=== PATIENT | female | born 1980 | race Caucasian/White ===

== ENCOUNTER 2022-06-11 13:41 | Outpatient (CLI) | payer OTHER, SELFPAY ==
--- NOTE | 2022-06-11 13:40 | CRLHL7_ITS ---
For Patients: As a result of the Cures Act, medical imaging exams and procedure reports are released immediately into your electronic medical record. You may view this report before your referring provider. If you have questions, please contact your health care provider. BILATERAL SCREENING MAMMOGRAM WITH COMPUTER-AIDED DETECTION TECHNIQUE: CC and MLO views were obtained. These mammographic images have been obtained using full-field digital technique. These mammographic images were interpreted with the benefit of computer-aided detection. COMPARISON FILM: 04/15/21, 03/24/20. FINDINGS: The breasts are almost entirely fatty IMPRESSION: There is no radiographic evidence for malignancy. ASSESSMENT: BI-RADS Category 1: Negative RECOMMENDATION: Routine screening mammogram in 1 year. A lay language report of this examination will be provided to the patient. Amadeo Baltazar M.D. Diagnostic Radiologist [email or web address] GIL/daren / be/Dictated by: Amadeo Baltzaar MD @ 06/14/2022 8:36:00 AM (Electronically Signed)
== END 2022-06-11 13:42 | disposition home or self-care (01) ==
LOC: MAMMO 13:42
PROVIDERS: PCP Physician Assistant Medical; Visit Provider Physician Assistant Medical
DX: Z12.31 Encounter for screening mammogram for malignant neoplasm of breast (principal)
CPT/HCPCS: 77063; 77067

== ENCOUNTER 2023-08-05 08:45 | Outpatient (CLI) | payer OTHER, SELFPAY | END 2023-08-05 08:46 | disposition home or self-care (01) | LOC: NFLDREF 08-08 06:51 | PROVIDERS: PCP Physician Assistant Medical; Referring Provider Physician Assistant Medical; Visit Provider Physician Assistant Medical | DX: I10 Essential (primary) hypertension (principal); M54.9 Dorsalgia, unspecified; Z11.59 Encounter for screening for other viral diseases; Z13.220 Encounter for screening for lipoid disorders; Z13.21 Encounter for screening for nutritional disorder; Z13.29 Encounter for screening for other suspected endocrine disorder | CPT/HCPCS: 80053; 80061; 82607; 84443; 86703; 86803; 87086 ==

== ENCOUNTER 2023-09-09 07:12 | Outpatient (CLI) | payer OTHER, SELFPAY ==
--- NOTE | 2023-09-09 07:15 | CRLHL7_ITS ---
For Patients: As a result of the Century Cures Act, medical imaging exams and procedure reports are released immediately into your electronic medical record. You may view this report before your referring provider. If you have questions, please contact your health care provider. INDICATION: irregular menstruation COMPARISON: none TECHNIQUE: 2D julien scale and color Doppler images were acquired of the pelvis using a transabdominal and transvaginal approach. FINDINGS: The uterus measures 9.8 x 5.0 x 6.0 cm. Posterior uterine fibroid is present measuring 2.4 x 1.4 x 1.9 cm. The endometrium is difficult to visualize due to its indistinct margins but appears to measure approximately 6 millimeters. Cervical nabothian cysts are present. The ovaries are not visualized. There are no suspicious fluid collections within the cul-de-sac. IMPRESSION: Indistinct endometrium measuring approximally 6 millimeters. No endometrial fluid. Intramural uterine fibroid measuring 2.4 cm. Dictated by Amadeo Baltazar MD @ 09/12/2023 5:55:17 AM (Electronically Signed)
== END 2023-09-09 07:13 | disposition home or self-care (01) ==
LOC: US 07:12
PROVIDERS: PCP Physician Assistant Medical; Visit Provider Physician Assistant Medical
DX: N92.6 Irregular menstruation, unspecified (principal); D25.1 Intramural leiomyoma of uterus; N80.9 Endometriosis, unspecified
CPT/HCPCS: 76830; 76856

== ENCOUNTER 2023-12-12 14:02 | Outpatient (CLI) | payer OTHER, SELFPAY ==
--- NOTE | 2023-12-12 14:00 | CRLHL7_ITS ---
For Patients: As a result of the Cures Act, medical imaging exams and procedure reports are released immediately into your electronic medical record. You may view this report before your referring provider. If you have questions, please contact your health care provider. BILATERAL SCREENING MAMMOGRAM WITH COMPUTER-AIDED DETECTION AND TOMOSYNTHESIS TECHNIQUE: CC and MLO views were obtained. These mammographic images have been obtained using full-field digital technique. These mammographic images were interpreted with the benefit of computer-aided detection. Breast Tomosynthesis was used in this interpretation. COMPARISON FILM: 06/11/22, 04/15/21, 03/24/20. FINDINGS: There are scattered areas of fibroglandular density IMPRESSION: There is no radiographic evidence for malignancy. ASSESSMENT: BI-RADS Category 1: Negative RECOMMENDATION: Routine screening mammogram in 1 year. A lay language report of this examination will be provided to the patient. Amadeo Baltazar M.D. Diagnostic Radiologist [email or web address] GIL/kishan Transcribed: 2:55 p.mYari holley/Dictated by: Amadeo Baltazar MD @ 12/13/2023 9:50:00 AM (Electronically Signed)
== END 2023-12-12 14:03 | disposition home or self-care (01) ==
PROVIDERS: PCP Physician Assistant Medical; Visit Provider Physician Assistant Medical
DX: Z12.31 Encounter for screening mammogram for malignant neoplasm of breast (principal)
CPT/HCPCS: 77063; 77067

== ENCOUNTER 2024-01-24 08:44 | Inpatient (IN) | payer OTHER, SELFPAY ==
[2024-01-24] VITALS (19 sets, daily range): BP systolic 111–139; BP diastolic 68–97; PULSE 57–78; RESP 16–20; TEMP 35.7–37; O2SAT 94–96; BMI 44.4
--- NOTE | 2024-01-24 09:15 | W.PM.GYNPROC ---
Procedure Note Date of procedure: 01/24/24 Will [facility] bill your pro fee for this procedure?: Yes Pre-op diagnosis: 1. Pelvic pain. 2. Endometriosis. 3. History of section x2. Post-op diagnosis: Same + left abdominal calcified mass in the subcutaneous adipose. Procedure: 1. Total abdominal hysterectomy. 2. Right salpingo oophorectomy. 3. Left oophorectomy. 4. Excision of calcified abdominal mass in the subcutaneous adipose to the left of midline. Anesthesia: GETA Complications: None. Surgeon: Lucrecia Valverde MD Investigator Claims: Cheryl Cortez Estimated blood loss (mL): 200 Urine Output (mL): 400 Pathology: specimen obtained, sent to pathology (Uterus with attached cervix, detached right ovary and tube, left ovary, calcified adipose mass) Condition: stable Disposition: floor Procedure Description: After obtaining informed consent, the patient was taken to the operating room where general anesthesia was obtained without difficulty. She was prepared and draped in the normal sterile fashion in the low dorsal lithotomy position with legs supported in Yellofin stirrups. A Dejesus catheter was inserted sterilely into the bladder. A Pfannenstiel skin incision was made with a scalpel along the line of the patient's previous Pfannenstiel scar. This incision was carried down to the underlying layer of fascia with the Bovie. During the dissection in the adipose tissue, a firm calcified mass, approximately golf ball-sized, was encountered to the left of midline just above and adherent to the fascia. This was excised using a combination of electrocautery and sharp dissection, though a small amount of the mass was left adherent to the fascia because of concerns about buttonholing of the fascia itself. Hemostasis was obtained with electrocautery. The fascia was incised in the midline and the incision extended laterally. The superior and inferior aspects of the fascial incision were grasped with Guy clamps and the underlying rectus muscles dissected off sharply. The rectus muscles were in the midline. The underlying peritoneum was identified and entered bluntly. The peritoneal incision was extended superiorly and inferiorly with good visualization of the bladder. The patient was placed in some mild Trendelenburg positioning. The bowels were packed cephalad using a large moistened laparotomy sponge. The Lucas O retractor was placed in the incision. This provided adequate visualization of the pelvis. The pelvis was inspected with the findings noted above. Luis clamps were placed at the cornua bilaterally for traction. Both ureters were identified along their courses within the pelvic sidewall, the right by direct visualization and the left by palpation. The right right round ligament was doubly clamped with Guy clamps, transected, and suture ligated with 0 Vicryl. The anterior leaf of the broad ligament was opened to the midline from the right side. The right infundibulopelvic ligament was isolated, and two Gardenia clamps were placed across it just distal to right ovary. The right infundibulopelvic ligament was transected and doubly suture ligated with 0 Vicryl. Hemostasis was observed. The uterine vessels were skeletonized on the right side. The right tube and ovary were removed from the uterus at the cornua for better visualization during the hysterectomy and the pedicle suture ligated with 0 Vicryl. The uterine vessels were clamped across with a Gardenia and a straight clamp, transected, and suture ligated. Excellent hemostasis was obtained. Attention was then turned to the left side. The left round ligament was clamped with 2 Guy clamps, transected, and suture ligated with 0 Vicryl. The anterior leaf of the broad ligament was opened from the left side to the midline. The bladder was pushed caudally with a sponge stick. The left infundibulopelvic ligament could not be isolated at this time because the left ovary and left fallopian tube were densely adherent to the left pelvic sidewall. The left ovarian ligament and distal fallopian tube were isolated, transected, and doubly suture ligated with 0 Vicryl. Hemostasis was visualized. The left uterine vessels were skeletonized and then clamped across with Gardenia clamps, transected, and suture ligated. Excellent hemostasis was obtained. The remaining cardinal and uterosacral ligament attachments on both sides were clamped with straight Gardenia clamps adjacent to the lower uterine segment and cervix, transected and suture ligated with 0 Vicryl. On both sides, there were some accessory vessels that caused bleeding, and the bleeding vessels were identified, clamped with a right angle clamp, and suture ligated with 2-0 Vicryl or 2-0 chromic. Two Gardenia clamps were placed across the vaginal cuff angles. The uterus with attached cervix was then transected and passed off the field. The vaginal cuff angles were fixed with Gardenia stitches of 0 Vicryl. The intervening vaginal cuff was closed with [id number] sutures of 0 Vicryl. Attention was then turned to the left ovary. The tube appeared to be wrapped around the ovary and both were densely adherent to the left pelvic sidewall. Sharp adhesiolysis was done to free the ovary from the fallopian tube until the left infundibulopelvic ligament could be isolated. One small area had to be suture ligated with 3-0 chromic. The left ureter was palpated inferior to the area of dissection. The left infundibulopelvic ligament was clamped across with a curved Mark clamp just beneath the ovary, the ovary transected from the infundibulopelvic ligament and the pedicle suture ligated doubly with 0 Vicryl. Excellent hemostasis was obtained. The decision was made at this point to leave at the tube in place so as not to risk further bleeding. The abdomen and pelvis were then copiously irrigated. Hemostasis was visualized. Siobhan was placed over the raw tissue edges. Preparations were then made for cystoscopy. Fluorescein was administered intravenously. The abdominal incision was covered with a sterile towel. The patient's legs were placed in the lithotomy position. The Dejesus catheter was sterilely removed from the bladder. Cystoscopy was then performed using a 30 degree she cystoscope. Sterile normal saline to gravity drainage was used as distending media. The bladder was noted to be free of filling defects or suture material. Both ureters were identified and jets of fluorescein-tinged urine was noted from both ureteral orifices. The cystoscope was removed. The Dejesus catheter was replaced sterilely into the bladder. I then changed my gloves and my attention was once again turned to the abdomen. The abdomen was again inspected for hemostasis, and no active bleeding was noted. All laparotomy sponges and instruments were then removed. The subfascial tissues were carefully inspected and hemostasis assured. The fascia was reapproximated in a running fashion with a looped 0 Maxon suture. The subcutaneous tissues were copiously irrigated and hemostasis assured. The subcutaneous adipose layer was reapproximated in two running layers with 3-0 plain gut. The skin was closed in a subcuticular fashion with 4-0 Vicryl. A silver Mepilex dressing was applied. The patient tolerated the procedure well. Sponge, lap, needle, instrument counts were reported as correct x2. The patient was taken to recovery room awake and in stable condition. She received 3g of IV Ancef preoperatively and another 2 g of IV Ancef one I was notified that the total operating time had surpassed 3 hours. She received 30 mg of IV Toradol at the conclusion of the procedure. The uterus was weighed at the conclusion of the procedure, weight was 115. Postoperative debriefing was performed which confirmed the pathology specimens and the procedures performed. PATHOLOGY SPECIMEN(S): 1. Uterus, with detached right tube and ovary. 2. Left ovary. 3. Calcified abdominal adipose mass.
[2024-01-24] MEDS: SODIUM CHLORIDE 0.9 % (FLUSH) 10 ML SYRINGE IVF ×2 (09:40→20:56)
[2024-01-24 09:41] LABS: Hemoglobin* 13.9 gm/dL (12.0-16.0)
[2024-01-24 09:44] LABS: Ur HCG Qualitative* Negative (Negative)
--- NOTE | 2024-01-24 10:26 | W.ANESCHARGE ---
Anesthesia Charges Start Date/Time Anesthesia Start Date: 01/24/24 Anesthesia Start Time: 11:08 Stop Date/Time Anesthesia Stop Date: 01/24/24 Anesthesia Stop Time: 15:25
--- NOTE | 2024-01-24 10:36 | W.PM.H&PU_ITS ---
History & Physical Update History & Physical Update H&P Reviewed and patient assessed: No changes noted H&P Updates: Patient and I discussed the planned surgery and she indicated that she desired that both fallopian tubes and ovaries be removed along with the uterus. This is reasonable, given her endometriosis and pelvic pain history. We discussed estrogen-replacement therapy to start at hospital discharge for control of menopausal symptoms, and the patient expressed a preference for an estrogen- containing patch.
[2024-01-24] MEDS: LACTATED RINGERS 500 ML 500 ML 125 ML IV ×3 (11:02→14:35)
[2024-01-24] MEDS: CEFAZOLIN 1 GM inj 3 GM IVP (11:22)
--- NOTE | 2024-01-24 11:24 | P.NB_ITS ---
Nerve Block Nerve Block Time Seen by Provider: 11:17 Date Seen: 01/24/24 Type of block requested by surgeon for post-operative analgesia: TAP Side: bilateral Time out performed: Yes Verification of patient name: Yes Verification of date of : Yes Site marking: site marked Name of person performing procedure: Sammy Continuous monitoring Was continuous monitoring of O2 sat, B/P, telemetry monitor, recorded every 15 minutes?: Yes Procedure Checklist: sterile prep, needles and gloves Ultrasound guided. Images saved: Yes Medications given in 5ml increments after negative aspiration: Marcaine %: 0.25 mL: 30 Needle gauge: 20 and Exparel mL: 10 Patient tolerated procedure well: Yes Additional comments: Needle noted between internal oblique and transversus abdominus. Local spread visualized Block Charges Block Charge (with Pro Fee): TAP Bilateral Use of Ultrasound Machine for Block: Yes- US Guidance/pain block
[2024-01-24] MEDS: CEFAZOLIN 2 GM INJ IVP (15:00)
--- NOTE | 2024-01-24 15:34 | W.ANESCHARGE ---
Anesthesia Charges Start Date/Time Anesthesia Start Date: 01/24/24 Anesthesia Start Time: 11:08 Stop Date/Time Anesthesia Stop Date: 01/24/24 Anesthesia Stop Time: 15:25
[2024-01-24] MEDS: SIMETHICONE 80 MG TAB.CHEW 160 MG PO (16:24)
[2024-01-24] MEDS: MORPHINE 2 MG/ML inj IVP (16:28)
[2024-01-24] MEDS: LACTATED RINGERS 1000 ML 1,000 ML 100 ML IV (16:28)
[2024-01-24] MEDS: OXYCODONE 5 MG TABLET PO (19:04)
--- NOTE | 2024-01-24 20:14 | PC.NURSE ---
shift note: pt to floor via bed @ 1600. pt rating abd cramping 10/10. Dr. Valverde contacted and orders for morphine IV prn. Pt received IV prn Morphine with mild relief. aqua K pad and simethicone given. Pt also repositioned on lt side. pt stated pain in comfort level. pt up to recliner @ 1815 due to increase in lower abd discomfort. Pt tolerated mash potatoes and jello w/o n/v. dixon patent with bright yellow clr urine. drsg to lower abd c/d/i. BS active. pt rating pain 7/10 with movement @ 1900 and received po oxycodone. IV patent.
[2024-01-24] MEDS: KETOROLAC 30 MG/ML inj IVP (20:56)
[2024-01-25] MEDS: KETOROLAC 30 MG/ML inj IVP (03:05)
[2024-01-25] MEDS: ENOXAPARIN 40 MG/0.4 ML INJ SUBCUT ×2 (03:05→20:24)
[2024-01-25 03:10] VITALS: BP 147/90; PULSE 77; RESP 16; TEMP 36.8; O2SAT 98
[2024-01-25 06:43] LABS: Hemoglobin* 12.1 gm/dL (12.0-16.0)
[2024-01-25] MEDS: IBUPROFEN 600 MG TABLET PO ×3 (06:50→18:54)
[2024-01-25 07:03] LABS: Creatinine* 0.8 mg/dL (0.5-1.5); Est. Creatinine Clearance* 106.82; Estimated Glomerular Filt Rate 93 ml/min
--- NOTE | 2024-01-25 07:24 | PC.NURSE ---
Pt alert and oriented x3. Afebrile. Pt reports 2-4/10 pain in perineal/abdominal, pain managed with scheduled medication. Pt's abdominal dressing is CDI. Pt is up SBA, voiding, and tolerating a soft foods. Pt reported dixon was starting to feel uncomfortable, pulled dixon around 0345 catheter intact, pt reported feeling much better after it was taken out and is getting up to bathroom and voiding. Pt's abdominal dressing CDI. Expanse down time from [id number] during shift ([id number]).
[2024-01-25 08:56] VITALS: BP 131/88; PULSE 65; RESP 18; TEMP 37.2; O2SAT 96
[2024-01-25] MEDS: VALSARTAN 80 MG TABLET PO (09:36)
[2024-01-25] MEDS: hydroCHLOROthiazide 12.5 MG CAPSULE PO (09:36)
[2024-01-25 11:00] VITALS: BP 132/78; PULSE 78; RESP 18; O2SAT 96
--- NOTE | 2024-01-25 11:39 | PM.GYNPNPO ---
CONSTRUCTION STONEMASON - A/P Postoperative Procedures: Procedures Operation Date: 01/24/24 10:10 Actual Procedure Side Surgeon p Admit-Total Abdominal Hysterectomy, RIGHT SALPINGO-OOPHORECTOMY, LEFT OOPHORECTOMY, Removal of left abdominal adipose mass, CYSTOSCOPY Bilateral Lucrecia Valverde MD Postoperative status: doing well Postoperative plan: routine post-op care Time Spent With Patient Time: Total time spent is greater than 50% in coordination of care (as documented) at patient's floor/unit and/or counseling patient: Time with patient: less than 15 minutes CONSTRUCTION STONEMASON- PN:Subj Post-Op Subjective Time Seen by Provider: 08:15 Date Seen: 01/25/24 Post Operative Details: Post-operative day number 1: status post total abdominal hysterectomy, right salpingo oophorectomy, left oophorectomy, excision of abdominal adipose mass and diagnostic cystoscopy. Subjective: patient reports feeling better (Was experiencing cramping abdominal pain out of PACU yesterday, got under control by about 9:00 p.m. last night.), pain is well controlled, ambulating well and voiding without difficulty CONSTRUCTION STONEMASON-PN: Obj Exam Physical Exam: Vital signs: Temp Pulse Resp BP Pulse Ox O2 Del Method 98.9 F 65 18 131/88 96 Room Air 01/25/24 08:56 01/25/24 08:56 01/25/24 08:56 01/25/24 08:56 01/25/24 08:56 01/25/24 08:56 Constitutional: Constitutional: no acute distress Routine HEENT Exam: Head: Present normal inspection Routine Neck Exam: Neck: Present supple Routine Respiratory Exam: Respiratory: Present CTA bilaterally; Absent crackles, rhonchi or wheezes Routine Cardiovascular Exam: Cardiovascular: Present RRR; Absent murmur Routine Abdominal Exam: Abdominal: Present soft; Absent distended or tenderness Comments: Silver Mepilex dressing present, dry Routine Extremities Exam: Extremities: Present normal inspection; Absent calf tenderness or pedal edema Routine Psychiatric Exam: Psychiatric: Present normal affect Urinary Catheter Management: Urethral: Cath placed during this visit: no CONSTRUCTION STONEMASON - PN: Obj Data Labs Labs: Laboratory Results - last 24 hr 01/25/24 06:06 Hgb 12.1 Creatinine 0.8 Estimated Creat Clear 106.82 Estimated GFR 93
--- OUTSIDE RECORDS SUMMARY | 2024-01-25 12:44 | XMS_ITS | Encounter Summary ---
Author Organization [employer] [facility] Address [address] [place] [address] Care Team Providers Care Surgical Physician Assistant Name Role Phone Found, No Pcp Primary Care Provider Unavailab le Encounter Details Date Type Department Care Team (Late st Contact Info) Description 07/03/[address] [phone] Sri Hernandez MD [address] [place] [phone] Operative Report Social History Tobacco Use Types Packs/Day Years Used Date Smoking Tobacco: Never Assessed Sex and Gender Information Value Date Recorded Sex Assigned at Not on file Gender Identity Not on file Sexual Orientation Not on file documented as of this encounter Progress Notes * Sri Hernandez - 07/03/2007 12:00 AM CDT documented in this encounter Plan of Treatment Not on file documented as of this encounter Visit Diagnoses Not on filedocumented in this encounter Care Teams Surgical Physician Assistant Relationship Specialty Start Date End Date Found, No Pcp, [address] [place] [address] PCP - General 06/06/19 documented as of this encounter
--- OUTSIDE RECORDS SUMMARY | 2024-01-25 12:44 | XMS_ITS | Encounter Summary ---
Author Organization [employer] [facility] [employer] Address [address] [place] [address] Care Team Providers Care Permit Technician Name Role Phone Found, No Pcp Primary Care Provider Unavailab le Encounter Details Date Type Department Care Team (Late st Contact Info) Description 08/11/2006 Outside [facility] [address] [place] [address] [address] [phone] Indio Marshall MD [facility] [address] [place] [id number] Operative Report Social History Tobacco Use Types Packs/Day Years Used Date Smoking Tobacco: Never Assessed Sex and Gender Information Value Date Recorded Sex Assigned at Not on file Gender Identity Not on file Sexual Orientation Not on file documented as of this encounter Progress Notes * Indio Marshall MD - 08/11/2006 12:00 AM CDT documented in this encounter Plan of Treatment Not on file documented as of this encounter Visit Diagnoses Not on filedocumented in this encounter Care Teams Permit Technician Relationship Specialty Start Date End Date Found, No PcpMD [address] [place] [address] PCP - General 06/06/19 documented as of this encounter
--- OUTSIDE RECORDS SUMMARY | 2024-01-25 12:44 | XMS_ITS | Clinical Summary ---
Author Organization [email or web address] Address [address] [place] [address] Care Team Providers Care Manager Product Management Name Role Phone Found, No Pcp MD Primary Care Provider Unavailab le Source Comments You are receiving this document as you are listed as the primary care provider,follow-up provider, or the patient has been referred to you for consultation.This is in compliance with the Medicare and[facility]HR Incentive Program,which states Providers who transition their patient to another setting of careor provider of care or refers their patient to another provider of care shouldprovide summary care record for each transition of care or referral. Ruth Kunstadter – [employer] Allergies Active Allergy Reactions Criticality Noted Date Comments Penicillins Rash 05/20/2004 As an Medications Medication Sig Dispensed Refills Start Date End Date Status NYSTATIN EXTERNAL CREAME 729761 UNIT/GM apply bid to rash 30 0 08/10/2007 Active norethindrone-ethi nyl estradiol (LOESTRIN,MICROGES TIN) 1.5-30 MG-MCG tablet Take 1 Tablet by mouth daily. Active omeprazole (PRILOSEC) 20 MG capsule Take 1 Capsule by mouth daily for 90 days. Take 1 hour before a meal. 90 Capsule 03/12/2019 Active Pediatric Multiple Vit-C-FA (MULTIVITAMIN CHILDRENS) CHEW Take 1 Tablet by mouth daily. 04/02/2019 Active cholecalciferol (VITAMIND3) 50 MCG (2000 UT) tablet Take 2,000 Units by mouth daily. Active cyanocobalamin (VITAMIN B12) 1000 MCG tablet Take 1,000 mcg by mouth once a week. To take sublingually Active Calcium-Vitamin D-Vitamin K (VIACTIV CALCIUM PLUS D) 650-12.5-40 MG-MCG-MCG CHEW Chew and swallow 1 Tablet by mouth two times a day. Active polyethylene glycol (MIRALAX) packet Take 17 g by mouth daily as needed for Constipation. 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 Overview (03/12/2019): PLEASE DO NOT SCHEDULE ELECTIVE SURGERY FOR 30 DAYS, UNTIL AFTER 04/12/2019 Status post laparoscopic cholecystectomy 019 Morbid obesity with BMI of 45.0-49.9, adult 02/02 Overview (02/16/2019): Added automatically from request for surgery [id number] Binge-eating disorder, mild 09/20/2018 Candidiasis of skin and nails 08/10/2007 Throat pain 04/10/2007 Abnormal maternal glucose tolerance, antepartum 06/07/2006 Essential hypertension 05/26/2006 Overview (01/02/2015): [facility] Female infertility 11/18/2005 Overview (01/02/2015): [facility] Polycystic ovaries 10/21/2005 Resolved Problems Problem Noted Date Diagnosed Date Resolved Date Morbid obesity 07/03/2004 03/19/2019 Immunizations Name Administration Dates Next Due Td (7+ yrs) 12/03/1997 Family History Medical History Relation Name Comments Coronary Artery Disease Father Cancer Mother Diabetes, Type II Mother Obesity Mother Obesity Maternal Grandmother Relation Name Status Comments Father Alive Mother Maternal Grandmother Social History Tobacco Use Types Packs/Day Years Used Date Smoking Tobacco: Never Smokeless Tobacco: Never Alcohol Use Standard Drinks/Week Comments Not Currently 2 (1 standard drink = 0.6 oz pur e alcohol) Sex and Gender Information Value Date Recorded Sex Assigned at Not on file Gender Identity Not on file Sexual Orientation Not on file Last Filed Vital Signs Vital Sign Reading Time Taken Comments Blood Pressure 139/87 06/14/2019 9:55 AM CDT Pulse 58 06/14/2019 9:55 AM CDT Temperature 36.5 ??C (97.7 ??F) 03/13/2019 2 :00 PM PRINTER MACHINE Respiratory Rate 16 03/13/2019 2:00 PM PRINTER MACHINE Oxygen Saturation 96% 03/19/2019 1:4 9 PM PRINTER MACHINE Inhaled Oxygen Concentration - - Weight 120.7 kg (266 lb) 08/13/2019 8:0 4 AM CDT patinet stated weight Height 189.9 cm (6' 2.75) 04/12/2019 9 :17 AM PRINTER MACHINE Body Mass Index 33.47 04/12/2019 9:17 AM PRINTER MACHINE Plan of Treatment Health Maintenance Due Date Last Done Comments Hep C Screening (Preventive Services) 1979 Mammogram 1979 Adult Preventive Visit 1997 HepB (1) 1998 Cervical Cancer Screening Due 08/11/2007 08/10/2007 COVID-19 Vaccine ( season) 2023 06/04/2020, 05/08/2020 Influenza (#1) 2023 01/01/2020, 11/04, 12/07/2017, Additional history exists Zoster/Shingles (1 of 2) 2029 DTaP/Tdap/Td (4 - Tdap) 01/08/2030 01/09/20 20, 01/20/2011, 12/03/1997 HIV Screening (Preventive Services) Completed 12/06/2006, 01/14/2006 HPV Vaccine Aged Out No longer eligi ble based on patient's age to complete this topic HepA Aged Out No longer eligi ble based on patient's age to complete this topic Hib Aged Out No longer eligi ble based on patient's age to complete this topic IPV (Polio) Aged Out No longer eligi ble based on patient's age to complete this topic Infant RSV Aged Out No longer eligi ble based on patient's age to complete this topic MCV4 Aged Out No longer eligi ble based on patient's age to complete this topic Pneumococcal Aged Out No longer eligi ble based on patient's age to complete this topic Procedures Procedure Name Priority Date/Time Associated Diagnosis Comments PAP TEST, ROUTINE Routine 08/10/2007 12: 00 AM CDT HIV ANTIBODY Routine 12/06/2006 12:00 AM CDT from Last 3 Months or Most Recently Relevant to Health Maintenance Results * PAP TEST, ROUTINE (08/10/2007 12:00 AM CDT) Pap,Routine [facility] Comment: [facility] ([facility]) Satisfactory for evaluation. Endocervical/transformation zone component absent. Pap,Routine [facility] Comment: [facility] ([facility]) 09/27/06 Pap,Routine [facility] Comment: [facility] ([facility]) SCREEN Pap,Routine [facility] Comment: [facility]) [facility], [place](ASCP) Pap,Routine [facility] Comment: [facility]) [place], [place](ASCP) Pap,Routine [facility] Comment: [facility] ([facility]) ?? Based on the cytology result, reflex High Risk HPV DNA testing was not performed. ? Pap,Routine [facility] Comment: [facility] ([facility]) NA Pap,Routine [facility] Comment: [facility] ([facility]) Cervix, Endocervix Pap,Routine [facility] Comment: [facility] ([facility]) WNL 08/10/2007 08/10/2007 Sri Hernandez MD LAB_[address] [facility] de Phone Number [facility] [address] [phone] * HIV ANTIBODY (12/06/2006 12:00 AM CDT) HIV 1/2 Antibody ([facility]) NON-REACTI VE [facility] Comment: [facility] ([facility]) ?? A NON-REACTIVE HIV 1/2 ANTIBODY RESULT DOES NOT EXCLUDE HIV INFECTION SINCE THE TIME FRAME FOR SEROCONVERSION IS VARIABLE. IF ACUTE HIV INFECTION IS SUSPECTED, ANTIBODY RETESTING AND NUCLEIC ACID AMPLIFICATION (HIV DNA/RNA) TESTING IS RECOMMENDED. 12/06/2006 12/06/2006 Indio Marshall MD LAB_1 Performing Organization Address [facility] de Phone Number [facility] [address] [phone] from Last 3 Months or Most Recently Relevant to Health Maintenance Advance Directives * Full Code (Latest Code Status on File) Date Activated Date Inactivated Comments 03/12/2019:34 AM 03/13/2019 7:23 PM Care Teams Manager Product Management Relationship Specialty Start Date End Date Found, No Pcp, [id number] [place] [address] PCP - General 06/06/19
[2024-01-25] MEDS: SIMETHICONE 80 MG TAB.CHEW 160 MG PO (13:03)
[2024-01-25 15:00] VITALS: BP 113/80; PULSE 80; RESP 14; TEMP 37.1; O2SAT 95
--- NOTE | 2024-01-25 19:27 | PC.NURSE ---
End of Shift: The patient is pleasant with cares... reports pain at a manageable level throughout the day, it is well controlled with scheduled ibu. Up walking in the halls throughout the day. The patient reported an increase in gas pain this afternoon.. gasx was given with adequate relief. VSS on RA. Lower abdominal incision CDI. Voiding well,, the patient also showered today. Briana GARCIA BSN
[2024-01-25 20:20] VITALS: BP 98/45; PULSE 74; RESP 16; TEMP 36.8; O2SAT 100
[2024-01-25 23:00] VITALS: PULSE 121; RESP 16
[2024-01-26] MEDS: IBUPROFEN 600 MG TABLET PO ×2 (00:38→07:57)
[2024-01-26 00:47] VITALS: BP 110/41; PULSE 76; RESP 18; TEMP 36.7; O2SAT 95
[2024-01-26 04:32] VITALS: BP 111/73; PULSE 96; RESP 18; TEMP 36.8; O2SAT 96
--- NOTE | 2024-01-26 07:00 | PC.NURSE ---
Pt alert, oriented and vitally stable. Pt pain rated 1/10 throughout shift. Pt up independently, tolerating well. Pt stated that they?passed flatus during shift and had small bm. Pt has 2 lap sites and 1 umbilical site, all open to air, though the umbilical site has some scant dry blood. ?
--- NOTE | 2024-01-26 07:18 | P.DS_ITS ---
"DS: Providers Provider Date Seen: 01/26/24 Date of admission: 01/24/24 08:44 Primary care physician: Elise Brannon PA-C Admitting Clinician: Lucrecia Valverde MD Attending Physician on discharge: Jannet Roth MD Date of Discharge: 01/26/24 DS: Diagnosis Discharge Diagnosis (1) Status post hysterectomy with oophorectomy: Status: Acute Problem details: Total abdominal hysterectomy, left oophorectomy, right salping-oophorectomy SPECIAL DELIVERY MESSENGER-Discharge Summary Hospital Course Hospital Course Narrative: Patient is a 43 year old admitted on 01/24/24 for elective surgery. Indication for surgery: CPP, endometriosis. Intraoperative findings were notable for endometriosis, calcified abdominal mass in the subcutaneous adipose to the left of midline. She had an uncomplicated surgery. Postoperative course has been uneventful. Vitals have been stable. She has remained afebrile. Today, on postoperative day 2, she reports the pain is well controlled. She has been able to ambulate Without difficulty. She is tolerating regular diet. She is passing flatus. Dejesus catheter has been removed, and she is voiding without difficulty. Time Spent with Patient Time attestation: Total time spent providing and/or coordinating discharge services: Time spent: Less than 30 minutes SPECIAL DELIVERY MESSENGER - Exam Physical Exam: Vital signs: Temp Pulse Resp BP Pulse Ox O2 Del Method 98.3 F 96 18 111/73 96 Room Air 01/26/24 04:32 01/26/24 04:32 01/26/24 04:32 01/26/24 04:32 01/26/24 04:32 01/26/24 04:32 Narrative: VITAL SIGNS: As noted above. GENERAL APPEARANCE: Alert, cooperative female in no acute distress. MOOD & AFFECT: Normal. HEART: Regular rate and rhythm without murmurs. LUNGS: Lungs are clear to auscultation bilaterally. No crackles, wheezes, or rhonchi. ABDOMEN: Soft, non-distended and nontender. Silver dressing in place, clean and dry. Mons pubis with small hematoma. : Mild spotting. EXTREMITIES: Nonedematous. Well perfused. Nontender. NEURO: Intact. SPECIAL DELIVERY MESSENGER - DS: Data Procedures Procedures: Procedures Operation Date: 01/24/24 10:10 Actual Procedure Side Surgeon p Admit-Total Abdominal Hysterectomy, RIGHT SALPINGO-OOPHORECTOMY, LEFT OOPHORE CTOMY, Removal of left abdominal adipose mass, CYSTOSCOPY Bilateral Lucrecia Valverde MD Complications: none Discharge Plan Discharge Disposition: Home, Self-Care Date of Admission: 01/24/24 08:44 Attending Provider on Discharge: Nevaeh Roth Primary Care Provider: Elise Brannon Condition: Stable Anticipated Discharge Date/Time: 01/26/24 Discharge Medications: New ibuprofen 600 mg Tablet 600 mg PO Q6H Qty: 30 0RF oxycodone 5 mg Tablet 5 mg PO Q6H PRN (Reason: Moderate Pain) Qty: 20 0RF docusate sodium [Colace] 100 mg capsule 100 mg PO DAILY Qty: 30 0RF estradiol 0.1 mg/24 hr patch semiweekly 1 patch transdermal 2XW Qty: 8 2RF Rx Instructions: apply 1 patch for 3 days alternating with 1 patch for 4 days each week for 3 wks per 4-wk cycle Continued cholecalciferol (vitamin D3) 25 mcg (1,000 unit) tablet 1,000 unit PO DAILY magnesium 250 mg tablet 250 mg PO QDAY valsartan-hydrochlorothiazide 80-12.5 mg tablet 1 tab PO QDAY Qty: 90 3RF Rx Instructions: one tablet once daily for blood pressure Discontinued norethindrone (contraceptive) [Jencycla] 0.35 mg tablet 0.35 mg PO DAILY Qty: 84 1RF Discharge Orders: Discharge Order (Routine); Ordered 01/26/24 Ordered By: Nevaeh Roth Patient Education: Hysterectomy (DC) Additional Instructions: Nurse visit next week Tuesday for silver dressing removal and incision check. Message sent to scheduling-01/26/24. Patient will await call for scheduling. Activity Level: Activity as Tolerated and No Weight Bearing Activity Detail: No lifting more than 15 pounds, nothing vaginally for 6 weeks Discharge Diet: Heart Healthy (2 gm sodium, low fat) Follow Up Appointments: Elise Brannon PA-C [Primary Care Provider] - Forms: [employer] - [employer] | mentor | invest Info Instructions"
[2024-01-26 07:52] VITALS: BP 130/84; PULSE 82; PULSE 96; RESP 18; TEMP 36.5; O2SAT 96
[2024-01-26] MEDS: hydroCHLOROthiazide 12.5 MG CAPSULE PO (07:57)
[2024-01-26] MEDS: VALSARTAN 80 MG TABLET PO (09:57)
--- NOTE | 2024-01-26 10:36 | PC.NURSE ---
Nursing Care Hours: [id number] Pt this shift, calm and cooperative, alert and oriented. Pain controlled with scheduled ibuprofen. IV removed for shower and discharge. VSS. No c/o nausea or chest pain. Pt reports passing gas. Ambulating independently. All forms signed, pt had no questions. Ambulated off unit with friend in stable condition.
== END 2024-01-26 09:21 | disposition home or self-care (01) | DRG 742 ==
PROVIDERS: Admitting Provider Obstetrics & Gynecology; PCP Physician Assistant Medical; Visit Provider Obstetrics & Gynecology
PROC: 0UT94ZZ Resection of Uterus, Percutaneous Endoscopic Approach (ICD-10-PCS; CPT 52000; principal; 2024-01-24 10:00)
DX: N80.9 Endometriosis, unspecified (principal); Z68.41 Body mass index [BMI] 40.0-44.9, adult; G89.18 Other acute postprocedural pain; R10.2 Pelvic and perineal pain; E65 Localized adiposity; N92.6 Irregular menstruation, unspecified; K58.9 Irritable bowel syndrome, unspecified; E66.9 Obesity, unspecified; G89.29 Other chronic pain; M54.50 Low back pain, unspecified; I10 Essential (primary) hypertension
CPT/HCPCS: 00840; 36415; 51701; 64488; 76942; 81025; 82565; 85018; 86850; 86900; 86901; 88305; 88307; A9270; C9290; J0665; J0690; J1100; J1171; J1650; J1885; J2250; J2270; J2405; J2704; J2710; J3010; J3475; J3490; J7120

== ENCOUNTER 2024-03-20 12:37 | Outpatient (CLI) | payer OTHER, SELFPAY | END 2024-03-20 12:38 | disposition home or self-care (01) | LOC: NFLDREF 03-21 00:55 | PROVIDERS: PCP Physician Assistant Medical; Referring Provider Physician Assistant Medical; Visit Provider Obstetrics & Gynecology | DX: R39.15 Urgency of urination (principal); R32 Unspecified urinary incontinence | CPT/HCPCS: 87086 ==

== ENCOUNTER 2024-12-05 08:08 | Outpatient (CLI) | payer OTHER, SELFPAY | END 2024-12-05 08:09 | disposition home or self-care (01) | LOC: NFLDREF 12-06 07:31 | PROVIDERS: PCP Physician Assistant Medical; Referring Provider Physician Assistant Medical; Visit Provider Physician Assistant Medical | DX: I10 Essential (primary) hypertension (principal); E66.01 Morbid (severe) obesity due to excess calories | CPT/HCPCS: 80053; 80061; 82607; 84443 ==

== ENCOUNTER 2024-12-18 16:39 | Outpatient (CLI) | payer OTHER, SELFPAY ==
--- NOTE | 2024-12-18 16:40 | CRLHL7_ITS ---
For Patients: As a result of the Century Cures Act, medical imaging exams and procedure reports are released immediately into your electronic medical record. You may view this report before your referring provider. If you have questions, please contact your health care provider. INDICATION: BILATERAL SCREENING MAMMOGRAM, ASYMPTOMATIC 44 Y/O FEMALE COMPARISON: MAMMOGRAM 12/12/2023, 06/11/2022, 04/15/2021 TECHNIQUE: Digital mammogram in CC and MLO projections including computer-aided detection (CAD) and tomosynthesis. BREAST COMPOSITION: The breasts are almost entirely fatty. FINDINGS: No suspicious findings. ASSESSMENT: BI-RADS 1 Negative RECOMMENDATION: Annual screening mammogram. A lay language report of this examination will be provided to the patient. Dictated by: Amadeo Baltazar MD @ 12/19/2024 10:48:25 (Electronically Signed)
== END 2024-12-18 16:40 | disposition home or self-care (01) ==
LOC: MAMMO 16:39
PROVIDERS: PCP Physician Assistant Medical; Visit Provider Physician Assistant Medical
DX: Z12.31 Encounter for screening mammogram for malignant neoplasm of breast (principal)
CPT/HCPCS: 77063; 77067

== ENCOUNTER 2025-02-04 06:33 | Outpatient (CLI) | payer OTHER, SELFPAY | END 2025-02-04 06:34 | disposition home or self-care (01) | LOC: OP CLINIC 06:33 | PROVIDERS: PCP Physician Assistant Medical; Visit Provider Internal Medicine | DX: Z53.9 Procedure and treatment not carried out, unspecified reason (principal) ==